=== PATIENT | female | born 1975 | race Caucasian/White ===

== ENCOUNTER 2016-11-23 12:38 | Day surgery (SDC) | payer OTHER ==
[~2016-11-23 12:38] MED LIST: AMLO5TAB22 PO; Z.0.BCPILL PO
[2016-11-23] MEDS ORDERED: PROPOFOL 200 MG/20 ML AMP IV ONE (12:56)
[2016-11-23] MEDS ORDERED: INSULIN HUMAN REGULAR 1,000 UNITS/10 ML VIAL SQ PRN (13:00)
[2016-11-23] MEDS ORDERED: LACTATED RINGER'S 1000 ML IV PRN (13:00)
[2016-11-23] MEDS ORDERED: CHLORHEXIDINE GLUCONATE 2 % 1 PACK (2 CLOTHS) TOPICAL PRN (13:00)
[2016-11-23] MEDS ORDERED: METOPROLOL TARTRATE 25 MG TAB PO PRN (13:00)
[2016-11-23] MEDS ORDERED: POVIDONE IODINE 5% (ANTISEPSIS KIT) 4 APPLICATIONS EACH NARE PRN (13:00)
[2016-11-23] MEDS ORDERED: SODIUM CHLORID 0.9% 500 ML IV PRN (13:00)
[2016-11-23] MEDS ORDERED: MIDAZOLAM HCL 2 MG/2 ML VIAL ONE (13:22)
[2016-11-23] MEDS ORDERED: IMIT50TA PO (13:26)
[2016-11-23] MEDS ORDERED: DEPA500T PO (13:26)
[2016-11-23] MEDS ORDERED: NORT1TAB PO (13:26)
[2016-11-23] MEDS ORDERED: CYAN1000P IM (13:26)
[2016-11-23] MEDS ORDERED: OMEP20TA PO (13:26)
[2016-11-23] MEDS ORDERED: ASPI1TAB69 PO (13:26)
[2016-11-23] MEDS ORDERED: ASPI325T PO (14:31)
--- NOTE | 2016-11-23 15:56 | ETE ---
Study Study Date:11/23/2016 STUDY CONCLUSIONS SUMMARY - Left ventricle: The cavity size was normal. Wall thickness was normal. Systolic function was normal. The estimated ejection fraction was in the range of 60% to 65%. Wall motion was normal; there were no regional wall motion abnormalities. - Aortic valve: No evidence of vegetation. - Mitral valve: No evidence of vegetation. - Left atrium: No evidence of thrombus in the atrial cavity or appendage. - Atrial septum: There was a patent foramen ovale. Doppler and agitated saline contrast study showed a small bidirectional atrial level shunt, following an increase in RA pressure induced by abdominal compression. - Tricuspid valve: No evidence of vegetation. - Pulmonic valve: No evidence of vegetation. If LV function is below 40, please consider prescribing an ACEI or ARB or document rationale for non-use. PROCEDURE DATA Consent: The risks, benefits, and alternatives to the procedure were explained to the patient and informed consent was obtained. Procedure: Initial setup. The patient was brought to the laboratory in the fasting state. Intravenous access was obtained. Surface ECG leads and pulse oximetric signals were monitored. Sedation. Deep sedation was administered by anesthesiology. Transesophageal echocardiography. Topical anesthesia was obtained using viscous lidocaine. A transesophageal probe was inserted by the attending applied statistician. Image quality was good. Study completion: All IVs inserted during the procedure were removed. The patient tolerated the procedure well. There were no complications. Transesophageal echocardiography. 2D, complete spectral Doppler, and color Doppler. CARDIAC ANATOMY LEFT VENTRICLE: The cavity size was normal. Wall thickness was normal. Systolic function was normal. The estimated ejection fraction was in the range of 60% to 65%. Wall motion was normal; there were no regional wall motion abnormalities. AORTIC VALVE: Structurally normal valve. Trileaflet; normal thickness leaflets. Cusp separation was normal. No evidence of vegetation. Doppler: No significant regurgitation. Aorta: - There was no atheroma. There was no evidence for dissection. Aortic root: The aortic root was not dilated. Ascending aorta: The ascending aorta was normal in size. Aortic arch: The aortic arch was normal in size. Descending aorta: The descending aorta was normal in size. MITRAL VALVE: Structurally normal valve. Leaflet separation was normal. No evidence of vegetation. Doppler: Trace to mild regurgitation. LEFT ATRIUM: The atrium was normal in size. No evidence of thrombus in the atrial cavity or appendage. The appendage was morphologically a left appendage, multilobulated, and of normal size. Emptying velocity was normal. ATRIAL SEPTUM: There was a patent foramen ovale. Doppler and agitated saline contrast study showed a small bidirectional atrial level shunt, following an increase in RA pressure induced by abdominal compression. RIGHT VENTRICLE: The cavity size was normal. Wall thickness was normal. Systolic function was normal. PULMONIC VALVE: Structurally normal valve. No evidence of vegetation. TRICUSPID VALVE: Structurally normal valve. Leaflet separation was normal. No evidence of vegetation. Doppler: Trace regurgitation. PULMONARY ARTERY: The main pulmonary artery was normal-sized. RIGHT ATRIUM: The atrium was normal in size. PERICARDIUM: There was no pericardial effusion. Prepared and signed by Mayo Cortez [id number]
--- NOTE | 2016-11-24 15:13 | EKG ---
Date Performed: 11/23/2016 Time Performed: 13:02:08 PTAGE: 41 years EKG: Sinus rhythm Normal ECG NO PREVIOUS TRACING DOCTOR: Pierre Wise Interpretating Date/Time 11/24/2016 15:10:46
== END 2016-11-23 14:49 | disposition home or self-care (01) ==
LOC: HDOC 12:38 → HDIC 12:45 → HDOC 14:49
PROVIDERS: ATTEND Internal Medicine
DX: G43.009 Migraine without aura, not intractable, without status migrainosus (principal); R90.89 Other abnormal findings on diagnostic imaging of central nervous system; G35 Multiple sclerosis; E53.8 Deficiency of other specified B group vitamins; G62.9 Polyneuropathy, unspecified; Z86.73 Personal history of transient ischemic attack (TIA), and cerebral infarction without residual deficits
CPT/HCPCS: 93005; 93312; 93320; 93325; J2250

== ENCOUNTER 2017-01-30 05:56 | Emergency (ER) | payer OTHER ==
[~2017-01-30] VITALS: Ht 165.1 cm; Wt 59.1 kg
[~2017-01-30 05:56] MED LIST changes: -AMLO5TAB22 PO; +ASPI325T PO; +CYAN1000P IM; +DEPA500T PO; +IMIT50TA PO; +NORT1TAB PO; +OMEP20TA PO; -Z.0.BCPILL PO
[2017-01-30 06:00] VITALS: BP 149/100; PULSE 88; RESP 18; TEMP 98.4; O2SAT 100
[2017-01-30] MEDS ORDERED: SODIUM CHLOR 0.9% 1000 ML INJ 1,000 ML IV ONE (06:13)
[2017-01-30] MEDS ORDERED: DEXAMETHASONE SOD PHOS 20 MG/5 ML VIAL IV PUSH ONE (06:15)
[2017-01-30] MEDS ORDERED: diphenhydrAMINE HCL 50 MG/ML VIAL IVP ONE (06:15)
[2017-01-30] MEDS ORDERED: SODIUM CHLORIDE 0.9% FLUSH 10 ML FLUSH IVF PRN (06:15)
[2017-01-30] MEDS ORDERED: VALPROATE INJ 500 MG in SODIUM CHLORIDE 0.9% INJ 100 ML IV ONE (06:15)
[2017-01-30] MEDS ORDERED: PROCHLORPERAZINE INJ 10 MG/2 ML VIAL IVP ONE (06:15)
[2017-01-30] MEDS ORDERED: DEPA500T PO (06:35)
--- NOTE | 2017-01-30 06:36 | PD ---
HPI Chief Complaint: Headache Time Seen by Provider: 06:12 Travel History International Travel<30 days: No Contact w/Intl Traveler<30days: No Traveled to known affect area: No History of Present Illness HPI So 41 year-old woman presents emergent from complaining of migraine headache. She is a history of severe migraines. She gets migraines every couple months or so. She was taking valproic acid for migraine prevention but ran out of days ago as her prescription and he called in for a refill. She had migraines for 20 years or so. She states yesterday she started getting her typical migraine. Pain is worse in the right side of her head. It's been ongoing for the past day. She has phonophobia and photophobia. No other neurologic symptoms. History Past Medical History Narrative Medical PFO Migraines : 1 Para: 1 Social History Alcohol Use: No Tobacco Use: No Allergies-Medications (Allergen,Severity, Reaction): Coded Allergies: Stadol (Verified Allergy, Severe, Nausea/Vomiting, 01/31/16) Reported Meds & Prescriptions Reported Meds & Active Scripts Active Reported Aspirin 325 Mg Tab 325 Mg PO DAILY Depakote DR (Divalproex Sodium) 500 Mg Tabdr 500 Mg PO DAILY Omeprazole 20 Mg Tab 20 Mg PO DAILY Nortrel 1/35 (Norethindrone-Ethinyl Estradiol) 1-35 Mg-Mcg Tab 1 Tab PO DAILY Imitrex (Sumatriptan Succinate) 50 Mg Tab 50 Mg PO ONCE PRN If a satisfactory response has not been obtained at 2 hours, a second dose may be administered Cyanocobalamin Inj (Cyanocobalamin) 1,000 Mcg/Ml Inj 1,000 Mcg IM ONCE Review of Systems Except as stated in HPI: all other systems reviewed are Neg Physical Exam Narrative GENERAL: Well-appearing 41 year-old woman, no acute distress. SKIN: Focused skin assessment warm/dry. CARDIOVASCULAR: Warm and well perfused. RESPIRATORY: Normal rate and effort. MUSCULOSKELETAL: No obvious deformities. NEUROLOGICAL: Awake and alert. No gross deficits. Data Data Last Documented VS Vital Signs Date Time Temp Pulse Resp B/P Pulse Ox O2 Delivery O2 Flow Rate FiO2 01/30/17 06:11 97 Room Air 01/30/17 06:00 98.4 88 18 149/100 Orders Iv Access Insert/Monitor (01/30/17 06:13) Sodium Chloride 0.9% Flush (Ns Flush) (01/30/17 06:15) Prochlorperazine Inj (Compazine Inj) (01/30/17 06:15) Diphenhydramine Inj (Benadryl Inj) (01/30/17 06:15) Sodium Chlor 0.9% 1000 Ml Inj (Ns 1000 M (01/30/17 06:13) Dexamethasone Inj (Decadron Inj) (01/30/17 06:15) Valproate Inj (Depacon Inj) (01/30/17 06:15) MDM Medical Decision Making Medical Screen Exam Complete: Yes Emergency Medical Condition: Yes Differential Diagnosis Migraine, ICH, other Narrative Course Medical decision making 41 year-old woman with her typical migraine. Looks well. We'll give Compazine and Benadryl. We'll also give her steroids to prevent recurrent headache. We' ll load her with her valproic acid and give her 1 week prescription so she doesn 't get her refill. Diagnosis Primary Impression: Migraine headache Additional Instructions: Take Depakote as prescribed. Follow up with her primary doctor. Return to the emergency department for any new or worsening symptoms. Med/Other Pt SpecificInfo: No Change to Meds Scripts Divalproex (Depakote )500 Mg [id number] Mg PO DAILY 14 Days Ref 0 Prov:Mayo Hamilton MD 01/30/17 Disposition: 01 DISCHARGE HOME Condition: Stable Mayo Hamilton MD Jan 30, 2017 06:36
--- NOTE | 2017-01-30 07:13 | PD ---
Data Data Last Documented VS Vital Signs Date Time Temp Pulse Resp B/P Pulse Ox O2 Delivery O2 Flow Rate FiO2 01/30/17 06:11 97 Room Air 01/30/17 06:00 98.4 88 18 149/100 Orders Iv Access Insert/Monitor (01/30/17 06:13) Sodium Chloride 0.9% Flush (Ns Flush) (01/30/17 06:15) Prochlorperazine Inj (Compazine Inj) (01/30/17 06:15) Diphenhydramine Inj (Benadryl Inj) (01/30/17 06:15) Sodium Chlor 0.9% 1000 Ml Inj (Ns 1000 M (01/30/17 06:13) Dexamethasone Inj (Decadron Inj) (01/30/17 06:15) Valproate Inj (Depacon Inj) (01/30/17 06:15) MDM Supervised Visit with MARINO: No Narrative Course The patient was initially evaluated by the previous provider and sent out to me at the beginning my shift at 7:00 AM pending reassessment and disposition. See his note for further details. Briefly this is a 41-year-old female with history of migraine headaches here for evaluation of pain that is typical for her migraines. She was given Compazine, Benadryl, Decadron, and Depakote by the previous provider, and on my assessment at 7:10 AM the patient is sleeping comfortably, stating that she feels better and would like to go home. She is stable for discharge home with outpatient follow-up with her primary care physician this week. She ran out of her prescription for Depakote, and a new prescription was written by the previous provider. Patient informed on when to return to the emergency department. She verbalizes understanding and agreement with plan. Diagnosis Primary Impression: Migraine headache Qualified Code: G43.909 - Migraine without status migrainosus, not intractable , unspecified migraine type Referrals: Primary Care Physician 3 days Additional Instruction: Take Depakote as prescribed. Follow up with her primary doctor. Return to the emergency department for any new or worsening symptoms. Scripts Divalproex (Depakote DR)500 Mg [id number] Mg PO DAILY 14 Days Ref 0 Prov:Mayo Hamilton MD 01/30/17 Disposition: 01 DISCHARGE HOME Condition: Stable Abdulaziz Saini MD Jan 30, 2017 07:13
[2017-01-30 07:14] VITALS: BP 119/75; PULSE 75; RESP 16; O2SAT 98
== END 2017-01-30 07:32 | disposition home or self-care (01) ==
LOC: PHED 05:56
DX: G43.909 Migraine, unspecified, not intractable, without status migrainosus (principal)
CPT/HCPCS: 96365; 96375; 99284; J0780; J1100; J1200; J7030

== ENCOUNTER 2017-06-27 06:33 | Day surgery (SDC) | payer OTHER ==
[~2017-06-27] VITALS: Ht 162.6 cm; Wt 56.8 kg
[~2017-06-27 06:33] MED LIST changes: +ASPI-183 PO; -ASPI325T PO; -OMEP20TA PO; +OMEP20TA93 PO
[2017-06-27 06:54] VITALS: BP 141/98; PULSE 84; RESP 20; TEMP 98.4; O2SAT 100
[2017-06-27] MEDS ORDERED: SODIUM CHLOR 0.9% 1000 ML INJ 1,000 ML IV SCH (07:15)
[2017-06-27] MEDS ORDERED: BUPR100CR PO (07:54)
[2017-06-27 07:56] LABS: AUTOMATED NEUTROPHIL # 2.7 TH/MM3 (1.8-7.7); BASOPHIL # 0.1 TH/MM3 (0-0.2); BASOPHIL % 1.1 % (0.0-2.0); EOSINOPHIL # 0.2 TH/MM3 (0-0.4); EOSINOPHIL % 4.4 % (0.0-4.0); HEMATOCRIT 37.7 % (35.0-46.0); HEMO FLAGS DIFF FINAL; LYMPH % 31.8 % (9.0-44.0); LYMPHOCYTE # 1.6 TH/MM3 (1.0-4.8); MEAN CELL VOLUME 92.7 FL (80.0-100.0); MEAN CORPUSCULAR HEMOGLOBIN 31.3 PG (27.0-34.0); MEAN CORPUSCULAR HGB CONC 33.8 % (32.0-36.0); MONO % 7.4 % (0.0-8.0); NEUT % 55.3 % (16.0-70.0); PLATELET COUNT 217 TH/MM3 (150-450); RED BLOOD COUNT 4.06 MIL/MM3 (4.00-5.30); RED CELL DISTRIBUTION WIDTH 12.7 % (11.6-17.2); WHITE BLOOD COUNT 4.9 TH/MM3 (4.0-11.0)
[2017-06-27 08:02] LABS: APTT (PATIENT) 26.8 SEC (24.3-30.1); PROTHROMBIN TIME - PATIENT 10.4 SEC (9.8-11.6)
[2017-06-27 08:15] LABS: POTASSIUM 3.3 MEQ/L (3.5-5.1)
--- NOTE | 2017-06-27 09:21 | PD.RAD ---
Post Procedure Progress Note Pre Procedure Diagnosis: (1) MS (multiple sclerosis) (2) Migraine headache Post Procedure Diagnosis: (1) MS (multiple sclerosis) (2) Migraine headache Procedure Date: Jun 27, 2017 Supervising Radiologist: Ifeanyi Sun Anesthesia: Local Plan of Activity Patient to Unit: [facility] Patient Condition: Good Additional Comments: LP completed without difficulty. Single puncture at L4/5 20 cc of clear csf obtained. Full dictated report to follow. See PACS Report for procedural detail/treatment Ifeanyi Sun MD Jun 27, 2017 09:21
[2017-06-27 09:27] VITALS: BP 140/91; PULSE 92; RESP 18; TEMP 98.5; O2SAT 96
--- NOTE | 2017-06-27 09:44 | RADRPT ---
EXAM DATE/TIME: 06/27/2017 08:16 [facility] COMPARISON: No previous studies available for comparison. INDICATIONS : Patient for MS workup. MEDICAL HISTORY : 1. Migraines 2. HTN 3. PFO SURGICAL HISTORY : 1.C section ENCOUNTER: Initial ACUITY: > 1 year PAIN SCORE: 0/10 LUMBAR PUNCTURE TIME: 0912 hours FLUORO TIME: 0.7 minutes IMAGE SERIES: 0 ACCESS LEVEL: L4-5 FLUID: 20 cc of clear CSF was collected and sent to the laboratory for analysis. PROCEDURE : 1. Fluoroscopic guided lumbar puncture. The risks, benefits and alternatives to the procedure were explained and verbal and written consent w as obtained. The site was prepped in sterile fashion. Full sterile technique was used, including ca p, mask, sterile gloves and gown and a large sterile sheet. Hand hygiene and 2% chlorhexidine and/or betadine/alcohol prep was utilized per protocol for cutaneous antisepsis. The skin and subcutaneous tissues were infiltrated with local anesthetic solution. With fluoroscopic guidance the lumbar thecal sac was punctured at the level above. The fluid describ ed above was removed without difficulty. The patient tolerated the procedure well and there were no complications. CONCLUSION: Uncomplicated fluoroscopically guided lumbar puncture. Ifeanyi Sun MD on June 27, 2017 at 9:42 Board Certified Radiologist. This report was verified electronically.
[2017-06-27 10:06] LABS: GROSS BLOOD TUBE #1 0 (0); GROSS BLOOD TUBE #2 0 (0); GROSS BLOOD TUBE #3 0 (0); GROSS BLOOD TUBE #4 0 (0); SUPERNATE COLOR TUBE #1 CLEAR (CLEAR); SUPERNATE COLOR TUBE #2 CLEAR (CLEAR); SUPERNATE COLOR TUBE #3 CLEAR (CLEAR); SUPERNATE COLOR TUBE #4 CLEAR (CLEAR); VOLUME TUBE # 1 4.4 ML; VOLUME TUBE # 2 4.9 ML; VOLUME TUBE # 3 4.8 ML; VOLUME TUBE # 4 6.3 ML
[2017-06-27 10:20] LABS: CSF LYMPHOCYTES 100 %; CSF NEUTROPHILS 0 %; WBC TUBE #4 1 /MM3 (0-10)
[2017-06-27 11:12] VITALS: BP 140/91; PULSE 88; RESP 18; O2SAT 98
[2017-06-28 15:01] LABS: LYME IGG IMMUNOBLOT CSF None Detected bands (None Detected); LYME IGM IMMUNOBLOT CSF None Detected bands (None Detected)
[2017-06-29 19:53] LABS: VDRL CSF NON-REACTIVE (())
[2017-06-30 09:31] LABS: CSF CRYPTOCOCCUS AG CONF ND (NOT DETECTD)
== END 2017-06-27 11:31 | disposition home or self-care (01) ==
LOC: HROP 06:33 → HRIP 06:36 → HROP 11:31
PROVIDERS: ATTEND Psychiatry & Neurology Neurology
DX: G35 Multiple sclerosis (principal); G43.909 Migraine, unspecified, not intractable, without status migrainosus; I10 Essential (primary) hypertension; Q21.1 Atrial septal defect; Z01.818 Encounter for other preprocedural examination
CPT/HCPCS: 62270; 77003; 80048; 82040; 82042; 82784; 82945; 83873; 83916; 84157; 85025; 85610; 85730; 86403; 86592; 86618; 87015; 87070; 87102; 87116; 87205; 87206; 89051; J7030

== ENCOUNTER → 2017-06-30 | Day surgery (SDC) | payer OTHER ==
[~2017-06-30] VITALS: Ht 165.1 cm; Wt 57.6 kg
[~2017-06-30] MED LIST changes: +BUPR100CR PO; +CHLORHEXIDINE GLUCONATE 2 % 1 PACK (2 CLOTHS) TOPICAL PRN; +LACTATED RINGER'S 1000 ML IV PRN; +METOPROLOL TARTRATE 25 MG TAB PO PRN; +POVIDONE IODINE 5% (ANTISEPSIS KIT) 4 APPLICATIONS EACH NARE PRN; +SODIUM CHLORID 0.9% 500 ML IV PRN
[2017-06-30 09:56] LABS: AUTOMATED NEUTROPHIL # 3.3 TH/MM3 (1.8-7.7); BASOPHIL % 0.9 % (0.0-2.0); EOSINOPHIL # 0.1 TH/MM3 (0-0.4); EOSINOPHIL % 2.1 % (0.0-4.0); HEMATOCRIT 40.1 % (35.0-46.0); HEMO FLAGS DIFF FINAL; LYMPH % 27.7 % (9.0-44.0); LYMPHOCYTE # 1.5 TH/MM3 (1.0-4.8); MEAN CELL VOLUME 93.2 FL (80.0-100.0); MEAN CORPUSCULAR HEMOGLOBIN 31.4 PG (27.0-34.0); MEAN CORPUSCULAR HGB CONC 33.7 % (32.0-36.0); MONO % 6.4 % (0.0-8.0); NEUT % 62.9 % (16.0-70.0); PLATELET COUNT 222 TH/MM3 (150-450); RED CELL DISTRIBUTION WIDTH 12.3 % (11.6-17.2); WHITE BLOOD COUNT 5.3 TH/MM3 (4.0-11.0)
[2017-06-30 10:06] LABS: APTT (PATIENT) 26.6 SEC (24.3-30.1); INTERNATIONAL NORMALIZED RATIO 1.1 RATIO; PROTHROMBIN TIME - PATIENT 10.7 SEC (9.8-11.6)
[2017-06-30 12:01] VITALS: BP 155/94; PULSE 72; RESP 18; TEMP 98.1; O2SAT 99
== END | disposition home or self-care (01) ==
LOC: HSDC 08:57
PROVIDERS: ATTEND Radiology Body Imaging
DX: R51 Headache (principal); G35 Multiple sclerosis; Q21.1 Atrial septal defect
CPT/HCPCS: 36415; 62273; 85025; 85610; 85730